=== PATIENT | female | born 1960 | race Caucasian/White ===

== ENCOUNTER 2022-07-09 11:54 | Inpatient (IN) | payer OTHER ==
[2022-07-09 13:13] VITALS: BMI 22.3
[2022-07-09] MEDS ORDERED: ACETAMINOPHEN 325 MG TABLET (FP) PO PRN ×2 (14:41)
[2022-07-09] MEDS ORDERED: NALOXONE HCL (KLOXXADO) 8 MG SPRAY NS PRN (14:41)
[2022-07-09] MEDS ORDERED: IBUPROFEN 600 MG TABLET (FP) PO PRN (14:41)
[2022-07-09] MEDS ORDERED: IBUPROFEN 400 MG TABLET (FP) PO PRN (14:41)
[2022-07-09] MEDS ORDERED: chlordiazePOXIDE HCL 25 MG CAPSULE PO PRN (14:41)
[2022-07-09] MEDS ORDERED: MAG HYDROX/AL HYDROX/SIMETH 30 ML UNIT-DOSE CUP PO PRN (14:41)
[2022-07-09] MEDS ORDERED: ONDANSETRON *ODT* 4 MG TABLET SL PRN (14:41)
[2022-07-09] MEDS ORDERED: MAGNESIUM CITRATE 300 ML BOTTLE PO PRN (14:41)
[2022-07-09] MEDS ORDERED: BISMUTH SUBSALICYLATE 524 MG/30 ML PO PRN (14:41)
[2022-07-09] MEDS ORDERED: DICYCLOMINE HCL 10 MG CAPSULE PO PRN (14:41)
[2022-07-09] MEDS ORDERED: LOPERAMIDE HCL 2 MG CAPSULE PO PRN (14:41)
[2022-07-09] MEDS ORDERED: MAGNESIUM HYDROX 2400MG/30ML ORAL SUSPENSION 30 ML CUP PO PRN (14:41)
[2022-07-09] MEDS ORDERED: NICOTINE 10 MG CARTRIDGE (INHALER) IH PRN (14:41)
[2022-07-09] MEDS ORDERED: traZODone HCL 50 MG TABLET (FP) PO PRN (14:41)
[2022-07-09] MEDS ORDERED: BENZOCAINE/MENTHOL (CHLORASEPTIC ) LOZENGE MM PRN (14:41)
[2022-07-09] MEDS ORDERED: chlordiazePOXIDE HCL 25 MG CAPSULE ONE (15:12)
[2022-07-09] MEDS ORDERED: INSULIN SLIDING SCALE (NOVOLOG) 1 VIAL SQ SCH (16:30)
[2022-07-09] MEDS: hydrOXYzine PAMOATE 25 MG CAPSULE (FP) PO SCH ×2 (17:41→22:11)
[2022-07-09] MEDS: chlordiazePOXIDE HCL 25 MG CAPSULE PO SCH ×2 (17:41→22:11)
[2022-07-09] MEDS ORDERED: traZODone HCL 50 MG TABLET (FP) PO SCH (22:00)
[2022-07-09] MEDS ORDERED: PATIENT'S OWN MEDICATION (NON-FORMULARY) (Zolpidem Tartrate [Ambien] 10 MG Tablet) PO SCH (22:00)
[2022-07-09] MEDS: CHLORTHALIDONE 25 MG TABLET PO SCH (22:10)
[2022-07-09] MEDS: PRENATAL VITAMINS W/ FOLIC ACID TABLET (FP) PO SCH (22:10)
[2022-07-09] MEDS: traZODone HCL 50 MG TABLET (FP) PO SCH (22:11)
[2022-07-09] MEDS: CARVEDILOL 3.125 MG TABLET (FP) PO SCH (22:11)
[2022-07-09] MEDS: THIAMINE HCL 100 MG TABLET (FP) PO SCH (22:11)
[2022-07-09] MEDS: MELATONIN 5 MG TABLETS PO SCH (22:12)
[2022-07-09] MEDS: APIXABAN 5 MG TABLET PO SCH (22:12)
[2022-07-09] MEDS: INSULIN SLIDING SCALE (NOVOLOG) 1 VIAL SQ SCH (23:09)
[2022-07-10] MEDS: chlordiazePOXIDE HCL 25 MG CAPSULE PO SCH ×4 (06:18→22:20)
[2022-07-10] MEDS: INSULIN SLIDING SCALE (NOVOLOG) 1 VIAL SQ SCH ×4 (06:19→23:57)
[2022-07-10] MEDS: LOSARTAN POTASSIUM 25 MG TABLET PO SCH (10:06)
[2022-07-10] MEDS: PRENATAL VITAMINS W/ FOLIC ACID TABLET (FP) PO SCH (10:06)
[2022-07-10] MEDS: APIXABAN 5 MG TABLET PO SCH ×2 (10:06→22:20)
[2022-07-10] MEDS: CHLORTHALIDONE 25 MG TABLET PO SCH (10:07)
[2022-07-10] MEDS: METHOCARBAMOL 500 MG TABLET PO PRN (10:08)
[2022-07-10] MEDS: methaDONE HCL 40 MG DISPERSABLE TABLET PO SCH (10:46)
[2022-07-10] MEDS ORDERED: INSULIN (NOVOLOG) ASPART 100 UNITS/ML 10ML VIAL ONE (11:58)
[2022-07-10 12:15] LABS: HEMATOCRIT 47.2 % (32.4-45.2); HEMOGLOBIN 15.4 GM/dL (10.7-15.3); MCH 28.6 pg (25.7-33.7); MCHC 32.7 g/dl (32.0-36.0); MEAN CELL VOLUME 87.5 fl (80-96); MEAN PLT VOLUME 7.9 fl (7.5-11.1); PLATELET COUNT 251 10^3/uL (134-434); RBC 5.39 M/mm3 (3.60-5.2); RDW 14.4 % (11.6-15.6); WHITE BLOOD COUNT 7.7 K/mm3 (4.0-10.0)
[2022-07-10] MEDS: CARVEDILOL 3.125 MG TABLET (FP) PO SCH ×2 (12:53→23:57)
[2022-07-10] MEDS: SERTRALINE HCL 25 MG TABLET (FP) PO SCH (12:53)
[2022-07-10 13:11] LABS: CALCIUM 9.9 mg/dL (8.5-10.1)
[2022-07-10 13:12] LABS: ALBUMIN 3.6 g/dl (3.4-5.0); BLOOD UREA NITROGEN 17.9 mg/dL (7-18)
[2022-07-10 13:17] LABS: BILIRUBIN,TOTAL 0.4 mg/dL (0.2-1); TOT PROT 7.7 g/dl (6.4-8.2)
[2022-07-10] MEDS: MELATONIN 5 MG TABLETS PO SCH (22:20)
[2022-07-10] MEDS: THIAMINE HCL 100 MG TABLET (FP) PO SCH (22:20)
[2022-07-10] MEDS: traZODone HCL 50 MG TABLET (FP) PO SCH (22:20)
[2022-07-10] MEDS: ATORVASTATIN CA 40 MG TABLET (FP) PO SCH (22:21)
[2022-07-11] MEDS ORDERED: chlordiazePOXIDE HCL 25 MG CAPSULE PO SCH (05:00)
[2022-07-11] MEDS: methaDONE HCL 40 MG DISPERSABLE TABLET PO SCH (05:09)
[2022-07-11] MEDS: chlordiazePOXIDE HCL 10 MG CAPSULE PO SCH ×4 (05:09→22:36)
[2022-07-11] MEDS: metFORMIN HCL 500 MG TABLET (FP) PO SCH ×2 (06:32→17:40)
[2022-07-11] MEDS: INSULIN SLIDING SCALE (NOVOLOG) 1 VIAL SQ SCH ×4 (06:32→22:40)
[2022-07-11] MEDS: CHLORTHALIDONE 25 MG TABLET PO SCH (10:37)
[2022-07-11] MEDS: CARVEDILOL 3.125 MG TABLET (FP) PO SCH ×2 (10:37→22:35)
[2022-07-11] MEDS: APIXABAN 5 MG TABLET PO SCH ×2 (10:39→22:36)
[2022-07-11] MEDS: PRENATAL VITAMINS W/ FOLIC ACID TABLET (FP) PO SCH (10:39)
[2022-07-11] MEDS: EMPAGLIFLOZIN 10 MG PO SCH (10:41)
[2022-07-11] MEDS: SERTRALINE HCL 25 MG TABLET (FP) PO SCH (10:42)
[2022-07-11] MEDS: LOSARTAN POTASSIUM 25 MG TABLET PO SCH (13:27)
[2022-07-11] MEDS ORDERED: INSULIN (LEVEMIR) 100 UNITS/ML UNITS SQ SCH (22:00)
[2022-07-11] MEDS: THIAMINE HCL 100 MG TABLET (FP) PO SCH (22:35)
[2022-07-11] MEDS: traZODone HCL 50 MG TABLET (FP) PO SCH (22:36)
[2022-07-11] MEDS: MELATONIN 5 MG TABLETS PO SCH (22:36)
[2022-07-11] MEDS: ATORVASTATIN CA 40 MG TABLET (FP) PO SCH (22:36)
[2022-07-11] MEDS: INSULIN (LEVEMIR) 100 UNITS/ML UNITS SQ SCH (23:37)
[2022-07-12] MEDS ORDERED: chlordiazePOXIDE HCL 10 MG CAPSULE PO PRN
[2022-07-12] MEDS ORDERED: chlordiazePOXIDE HCL 10 MG CAPSULE PO SCH (05:00)
[2022-07-12] MEDS: chlordiazePOXIDE HCL 10 MG CAPSULE PO SCH ×2 (06:00→18:30)
[2022-07-12] MEDS: methaDONE HCL 40 MG DISPERSABLE TABLET PO SCH (06:00)
[2022-07-12] MEDS: INSULIN SLIDING SCALE (NOVOLOG) 1 VIAL SQ SCH ×4 (06:01→23:15)
[2022-07-12] MEDS: metFORMIN HCL 500 MG TABLET (FP) PO SCH ×2 (06:01→18:29)
[2022-07-12] MEDS: SERTRALINE HCL 25 MG TABLET (FP) PO SCH (10:49)
[2022-07-12] MEDS: CARVEDILOL 3.125 MG TABLET (FP) PO SCH ×2 (10:49→21:57)
[2022-07-12] MEDS: PRENATAL VITAMINS W/ FOLIC ACID TABLET (FP) PO SCH (10:49)
[2022-07-12] MEDS: APIXABAN 5 MG TABLET PO SCH ×2 (10:50→21:57)
[2022-07-12] MEDS: EMPAGLIFLOZIN 10 MG PO SCH (10:53)
[2022-07-12] MEDS: LOSARTAN POTASSIUM 25 MG TABLET PO SCH (10:53)
[2022-07-12] MEDS: CHLORTHALIDONE 25 MG TABLET PO SCH (12:03)
[2022-07-12] MEDS: INSULIN (LEVEMIR) 100 UNITS/ML UNITS SQ SCH (21:57)
[2022-07-12] MEDS: THIAMINE HCL 100 MG TABLET (FP) PO SCH (21:57)
[2022-07-12] MEDS: ATORVASTATIN CA 40 MG TABLET (FP) PO SCH (21:57)
[2022-07-12] MEDS: traZODone HCL 50 MG TABLET (FP) PO SCH (22:01)
[2022-07-12] MEDS: MELATONIN 5 MG TABLETS PO SCH (22:01)
[2022-07-13] MEDS ORDERED: chlordiazePOXIDE HCL 10 MG CAPSULE PO ONE (05:00)
[2022-07-13] MEDS ORDERED: chlordiazePOXIDE HCL 10 MG CAPSULE PO SCH (05:00)
[2022-07-13] MEDS: methaDONE HCL 40 MG DISPERSABLE TABLET PO SCH (05:25)
[2022-07-13] MEDS: METHOCARBAMOL 500 MG TABLET PO PRN (05:25)
[2022-07-13 06:47] VITALS: RESP 18
[2022-07-13] MEDS: metFORMIN HCL 500 MG TABLET (FP) PO SCH (07:05)
[2022-07-13] MEDS ORDERED: INSULIN (NOVOLOG) ASPART 100 UNITS/ML 10ML VIAL ONE (07:27)
[2022-07-13] MEDS: INSULIN SLIDING SCALE (NOVOLOG) 1 VIAL SQ SCH (07:33)
[2022-07-13] MEDS: SERTRALINE HCL 25 MG TABLET (FP) PO SCH (09:03)
[2022-07-13] MEDS: APIXABAN 5 MG TABLET PO SCH (09:03)
[2022-07-13] MEDS: CHLORTHALIDONE 25 MG TABLET PO SCH (09:03)
[2022-07-13] MEDS: LOSARTAN POTASSIUM 25 MG TABLET PO SCH (09:04)
[2022-07-13] MEDS: CARVEDILOL 3.125 MG TABLET (FP) PO SCH (09:04)
[2022-07-13] MEDS: EMPAGLIFLOZIN 10 MG PO SCH (09:07)
[2022-07-13] MEDS: PRENATAL VITAMINS W/ FOLIC ACID TABLET (FP) PO SCH (09:11)
[2022-07-13 09:46] VITALS: BP 134/74; PULSE 60; TEMP 96.8
[2022-07-14] MEDS ORDERED: chlordiazePOXIDE HCL 10 MG CAPSULE PO ONE (05:00)
== END 2022-07-13 09:20 | disposition home or self-care (01) | DRG 897 ==
LOC: EDBD → YASAS 11:54 → Y6N 15:08
PROVIDERS: ADMIT Allergy & Immunology; ATTEND Surgery
PROC: HZ2ZZZZ Detoxification Services for Substance Abuse Treatment (ICD-10-PCS; principal; 2022-07-09)
DX: F10.230 Alcohol dependence with withdrawal, uncomplicated (principal); F11.20 Opioid dependence, uncomplicated; F14.20 Cocaine dependence, uncomplicated; F19.282 Other psychoactive substance dependence with psychoactive substance-induced sleep disorder; F12.10 Cannabis abuse, uncomplicated; F31.9 Bipolar disorder, unspecified; F19.24 Other psychoactive substance dependence with psychoactive substance-induced mood disorder; E78.5 Hyperlipidemia, unspecified; I11.0 Hypertensive heart disease with heart failure; I50.9 Heart failure, unspecified; I48.91 Unspecified atrial fibrillation; E11.9 Type 2 diabetes mellitus without complications; Z79.4 Long term (current) use of insulin; Z79.01 Long term (current) use of anticoagulants; Z85.3 Personal history of malignant neoplasm of breast
CPT/HCPCS: 36415; 71046-TC-FY; 80053; 82962; 85027; 86593; 86780; 93005; 93010; C9803-CS; U0003; U0005